=== PATIENT | female | born 1985 | race Two or more races ===

== ENCOUNTER 2024-04-28 02:36 | Emergency (ER) | payer OTHER ==
[~2024-04-28] VITALS: Ht 167.6 cm; Wt 111.1 kg
[2024-04-28] MEDS ORDERED: SYNTHROID175 MCG (02:59)
[2024-04-28] MEDS ORDERED: RINGERS SOLUTION,LACTATED 1,000 ML IV ONE (04:15)
[2024-04-28] MEDS ORDERED: MEPERIDINE HCL/PF 25 MG/ML VIAL IM STA (04:15)
[2024-04-28] MEDS ORDERED: FAMOTIDINE/PF 20 MG/2 ML VIAL IV PUSH STA (04:16)
[2024-04-28] MEDS ORDERED: PROMETHAZINE HCL 50 MG/ML AMPUL IM STA (04:16)
[2024-04-28] MEDS ORDERED: FAMOTIDINE/PF 20 MG/2 ML VIAL ONE (04:25)
[2024-04-28] MEDS ORDERED: PROMETHAZINE HCL 50 MG/ML AMPUL IM ONE (04:25)
[2024-04-28 06:56] LABS: PH,URINE 8.5 (5.0-8.0); URINE APPEARANCE Clear; URINE BILIRRUBIN Negative (NEGATIVE); URINE BLOOD Negative; URINE COLOR Yellow; URINE GLUCOSE Negative (NEGATIVE); URINE KETONE Negative (NEGATIVE); URINE LEUKOCYTE Negative; URINE NITRATE Negative; URINE PROTEIN Negative (NEGATIVE); URINE UROBILINOGEN 0.2 E.U./dl
[2024-04-28 06:58] LABS: HEMATOCRIT 37.1 % (36.0-45.00); HEMOGLOBIN 12.5 g/dL (12.0-15.00); MEAN CELL VOLUME 85.3 fL (80.00-100.00); MEAN CORPUSCULAR HEMOGLOBIN 28.8 pg (27.00-32.0); MEAN CORPUSCULAR HGB CONC 33.8 g/dl (32.0-36.0); PLATELET COUNT 269 K/uL (150-450); RED BLOOD COUNT 4.35 M/uL (4.00-6.00); RED CELL DISTRIBUTION WIDTH 13.5 % (11.5-14.5)
[2024-04-28 06:58] LABS: URINE EPITHELIAL CELLS 19.8 uL (0.0-38.8)
[2024-04-28 07:20] LABS: PARTIAL THROMBOPLASTIN TIME 28.6 SECONDS (22.0-34.0); PROTHROMBIN TIME 10.9 SECONDS (9.0-11.5)
[2024-04-28 07:31] LABS: ALBUMIN 3.8 gm/dL (3.4-5.0); BILIRUBIN TOTAL 0.64 mg/dL (0.3-1.2); CALCIUM 8.8 mg/dL (8.5-10.1); CREATININE SERUM 0.8 mg/dL (0.55-1.02); GFR 79.04; GLOBULINA 3.6 G/DL (2.4-3.5); POTASSIUM 4.18 mEq/L (3.5-5.1); TOTAL PROTEIN 7.4 gm/dL (6.4-8.2)
[2024-04-28 07:47] VITALS: BP 101/69; O2SAT 98
== END 2024-04-28 13:53 | disposition home or self-care (01) ==
LOC: ER 02:37
PROVIDERS: General Practice
DX: R10.32 Left lower quadrant pain (principal); E03.8 Other specified hypothyroidism; R10.11 Right upper quadrant pain

== ENCOUNTER 2024-05-27 10:09 | Outpatient (CLI) | payer OTHER ==
[~2024-05-27 10:09] MED LIST: SYNTHROID175 MCG
== END 2024-05-27 10:10 | disposition home or self-care (01) ==
LOC: NUCLEAR 10:09
DX: R10.9 Unspecified abdominal pain (principal)